=== PATIENT | female | born 1995 | race Hispanic/Latino ===

== ENCOUNTER 2018-05-10 03:45 | Emergency (ER) | payer OTHER, SELFPAY ==
--- NOTE | 2018-05-10 04:31 | ER ---
Nurse's Notes [facility] Name: Nadira Johnson Age: 22 yrs Sex: Female : 1995 Arrival Date: 05/10/2018 Time: 03:56 Bed 3 Private MD: Diagnosis: Alcohol abuse with intoxication;Tachycardia, unspecified;Hyperventilation;Restlessness and agitation Presentation: 05/10 03:57 Presenting complaint: EMS states: they were toned out for pt acting differently family bb concerned pt may have had something slipped into her drink at the bar [id number]. On their arrival pt combative and uncooperative. Transition of care: patient was not received from another setting of care. Onset of symptoms was May 10, 2018. Risk Assessment: Do you want to hurt yourself or someone else? Patient reports no desire to harm self or others. Initial Sepsis Screen: Does the patient meet any 2 criteria? No. Patient's initial sepsis screen is negative. Does the patient have a suspected source of infection? No. Patient's initial sepsis screen is negative. Care prior to arrival: Medication(s) given: Ativan 4 mg IM. 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 - Social history:: Smoking status: Patient uses tobacco products, denies chronic smoking, but will smoke occasionally, Patient uses alcohol, street drugs, marijuana. - Ebola Screening: : No symptoms or risks identified at this time. - Family history:: not pertinent. - Hospitalizations: : No recent hospitalization is reported. Screenin:25 Abuse screen: Denies threats or abuse. Denies injuries from another. Nutritional lp1 screening: No deficits noted. Tuberculosis screening: No symptoms or risk factors identified. Fall Risk Total Singh Fall Scale indicates High Risk Score (45 or more points). Fall prevention measures have been instituted. Side Rails Up X 2. Assessment: 04:00 General: Appears unkempt, Behavior is combative, uncooperative. Pain: Unable to use lp1 pain scale. refusing to answer questions. Neuro: Level of Consciousness is awake, Oriented to person, place, situation. Cardiovascular: Patient's skin is warm and dry. Respiratory: Airway is patent Respiratory effort is even, unlabored. GI: No deficits noted. : No deficits noted. EENT: No deficits noted. Derm: Skin is pink, warm \\T\\ dry. Musculoskeletal: Circulation, motion, and sensation intact. 04:15 Reassessment: pt uncooperative, combative refusing treatment. Security called and PD bb called and at bedside. Pt combative to officer and arrested. 04:15 Reassessment: Patient combative, refusing to get into bed, states "Y'all aren't gonna lp1 do shit to me"; Patient unsteady gait, refusing treatment; Security called; Patient urinated on floor. Vital Signs: 04:01 BP 102 / 65; Pulse 135; Resp 18 S; Temp 99.2(O); Pulse Ox 98% on R/A; Weight 61.23 kg bb (R); Height 5 ft. 3 in. (160.02 cm) (R); 04:01 Body Mass Index 23.91 (61.23 kg, 160.02 cm) bb ED Course: 03:56 Patient arrived in ED. bb 04:00 Triage completed. bb 04:01 Arm band placed on Patient placed in an exam room, on a stretcher, on liberal arts teacher, bb on pulse oximetry. EKG completed in triage. Results shown to MD. 04:16 Marcos Birch MD is Attending Physician. rn 04:16 Meghann Peralta, LENA is Primary Nurse. lp1 04:26 Patient has correct armband on for positive identification. lp1 04:26 No provider procedures requiring assistance completed. Patient did not have IV access lp1 during this emergency room visit. Administered Medications: No medications were administered Outcome: 04:27 Condition: stable lp1 04:38 Eloped Time discovered patient gone: May 10, 2018 at 04:20 Taken into custody by [place] [employer] 04:38 Patient left the ED. lp1 Signatures: Harriet Olivia RN RN bb Nieto, Roman, MD MD rn Pena, Laura, RN RN lp1
--- NOTE | 2018-05-10 04:31 | EDPHYS ---
Physician Documentation [facility] Name: Nadira Johnson Age: 22 yrs Sex: Female : 1995 Arrival Date: 05/10/2018 Time: 03:56 Bed 3 Private MD: ED Physician Marcos Birch HPI: 05/10 04:16 This 22 yrs old Female presents to ER via EMS with complaints of Altered rn Mental Status. 04:16 The patient presents with agitation. Onset: The symptoms/episode began/occurred at an rn unknown time. Possible causes: drug use, alcohol. Associated signs and symptoms: Pertinent positives: agitation, ataxia, combativeness, confusion. Current symptoms: In the emergency department the patient's symptoms have improved. It is unknown whether or not the patient has had similar symptoms in the past. Per family and EMS, patient drinking tonight, several drinks, sometime in middle of night became agitated, combative, required restraining, called 911 because she was having episodes of breath holding, followed by "flailing", would not follow commands, was not sure what to do so tried CPR even though she had a pulse, and called 911. EMS arrived, was combative, required police help restraining her, gave her ativan 4mg IM, and patient calmed down, EMS describes brief breath holding spells without LOC, that last for about 20 seconds each, no seizure like activity. Pt arrives and refuses care, states "everyone is always against her and has always been", denies suicidal/homicidal ideations, denies hallucinations.. 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 - Social history:: Smoking status: Patient uses tobacco products, denies chronic smoking, but will smoke occasionally, Patient uses alcohol, street drugs, marijuana. - Ebola Screening: : No symptoms or risks identified at this time. - Family history:: not pertinent. - Hospitalizations: : No recent hospitalization is reported. ROS: 04:16 Constitutional: Negative for fever, chills, and weight loss, Eyes: Negative for injury, rn pain, redness, and discharge, Neck: Negative for injury, pain, and swelling, Cardiovascular: Negative for chest pain, palpitations, and edema, Respiratory: Negative for shortness of breath, cough, wheezing, and pleuritic chest pain, Abdomen/GI: Negative for abdominal pain, nausea, vomiting, diarrhea, and constipation, MS/Extremity: Negative for injury and deformity, Skin: Negative for injury, rash, and discoloration, Neuro: Negative for headache, weakness, numbness, tingling, and seizure, Psych: Negative for suicide ideation, homicidal ideation, and hallucinations. Exam: 04:16 Constitutional: This is a well developed, well nourished patient who is awake, appears rn intoxicated, slurred speech, and swaying, crying and somewhat follows commands here. Head/Face: Normocephalic, atraumatic. Eyes: Pupils equal round and reactive to light, extra-ocular motions intact. Lids and lashes normal. Conjunctiva and sclera are non-icteric and not injected. Cornea within normal limits. Periorbital areas with no swelling, redness, or edema. ENT: Dry MM Neck: Trachea midline, no thyromegaly or masses palpated, and no cervical lymphadenopathy. Supple, full range of motion without nuchal rigidity, or vertebral point tenderness. No Meningismus. Cardiovascular: tachycardic, regular, no murmur Respiratory: Lungs have equal breath sounds bilaterally, clear to auscultation and percussion. No rales, rhonchi or wheezes noted. No increased work of breathing, no retractions or nasal flaring. Abdomen/GI: Soft, non-tender. No distension or tympany. No guarding or rebound. No evidence of tenderness throughout. Skin: Warm, dry with normal turgor. Normal color with no rashes, no lesions, and no evidence of cellulitis. MS/ Extremity: Pulses equal, no cyanosis. Neurovascular intact. Full, normal range of motion. Equal circumference. Neuro: Awake, appears intoxicated, answers all questions calmly, swaying and unable to walk straight line, no nystagmus, no myoclonus, no tremor. Moves all 4 extremities, ambulatory, coordinated enough to urinate on our floor. Vital Signs: 04:01 BP 102 / 65; Pulse 135; Resp 18 S; Temp 99.2(O); Pulse Ox 98% on R/A; Weight 61.23 kg bb (R); Height 5 ft. 3 in. (160.02 cm) (R); 04:01 Body Mass Index 23.91 (61.23 kg, 160.02 cm) bb MDM: 04:16 Patient medically screened. rn 04:16 Differential Diagnosis: electrolyte abnormality, alcohol intoxication, overdose, volume rn depletion, serotonin syndrome, hyperventilation, seizures. Data reviewed: vital signs, nurses notes. Refusal of service: The patient/guardian displays adequate decision making capability and despite a detailed discussion of alternatives, benefits, risks, and consequences refuses: CT Scan, all lab tests, Medications. ED course: Pt refuses all care, I was able to talk her into getting vital signs, which show tachycardia, is less agitated but not cooperative. I recommended to her and family that we do blood work, IV hydration, and observation to rule out ingestion vs psychiatric disorder vs serotonin syndrome. Pt proceeded to urinate on the floor, combative with staff, PD called, when arrived, patient cursing and making aggressive movements to police officers, was asked to stop grabbing officers, continued to do so, she was arrested for PI. tried to take her home to sleep it off as he believes she is overly intoxicated at this point. . Administered Medications: No medications were administered Disposition: 05/10/18 04:30 Patient left the facility after being seen by provider. Preliminary diagnosis are Alcohol abuse with intoxication, Tachycardia, unspecified, Hyperventilation, Restlessness and agitation. - Patient left due to other. - Condition is Fair. - Problem is new. - Symptoms have improved. Signatures: Harriet Olivia RN RN bb Nieto, Roman, MD MD rn Pena, Laura, RN RN lp1 Corrections: (The following items were deleted from the chart) 04:26 04:16 Constitutional: This is a well developed, well nourished patient who is awake, rn appears intoxicated, slurred speech, and swaying, crying and somewhat follows commands here. Head/Face: Normocephalic, atraumatic. Eyes: Pupils equal round and reactive to light, extra-ocular motions intact. Lids and lashes normal. Conjunctiva and sclera are non-icteric and not injected. Cornea within normal limits. Periorbital areas with no swelling, redness, or edema. ENT: Dry MM Cardiovascular: tachycardic, regular, no murmur Respiratory: Lungs have equal breath sounds bilaterally, clear to auscultation and percussion. No rales, rhonchi or wheezes noted. No increased work of breathing, no retractions or nasal flaring. Abdomen/GI: Soft, non-tender. No distension or tympany. No guarding or rebound. No evidence of tenderness throughout. Skin: Warm, dry with normal turgor. Normal color with no rashes, no lesions, and no evidence of cellulitis. MS/ Extremity: Pulses equal, no cyanosis. Neurovascular intact. Full, normal range of motion. Equal circumference. Neuro: Awake, appears intoxicated, answers all questions calmly, swaying and unable to walk straight line, no nystagmus, no myoclonus, no tremor. Moves all 4 extremities, ambulatory, coordinated enough to urinate on our floor. rn 04:38 04:30 05/10/2018 04:30 Patient left the facility after being seen by provider. lp1 Preliminary diagnosis is Alcohol abuse with intoxication; Tachycardia, unspecified; Hyperventilation; Restlessness and agitation. Reason stated they are leaving due to other. Condition is Fair. Problem is new. Symptoms have improved. rn
--- NOTE | 2018-05-10 09:02 | EKG ---
Test Date: 2018-05-10 Test Time: 03:52:39 Data Typist: LIUDMILA MEASUREMENT RESULTS: Intervals: Rate: 121 FL: 156 QRSD: 90 QT: 330 QTc: 468 [place]: P: 53 FL: 156 QRS: 44 T: 24 INTERPRETIVE STATEMENTS: Sinus tachycardia Otherwise normal ECG No previous ECG available for comparison Electronically Signed On 05-10-18 09:02:23 CDT by Desean Menendez
== END 2018-05-10 04:38 | disposition left against medical advice (07) ==
LOC: ER 03:45
DX: F10.129 Alcohol abuse with intoxication, unspecified (principal); R00.0 Tachycardia, unspecified; R06.4 Hyperventilation; R45.1 Restlessness and agitation
CPT/HCPCS: 93005; 99284